=== PATIENT | male | born 1975 | race African-American/Black ===

== ENCOUNTER 2017-06-24 00:16 | Emergency (ER) | payer SELFPAY ==
[~2017-06-24] VITALS: Ht 167.6 cm; Wt 78.0 kg
[2017-06-24] MEDS ORDERED: ONDANSETRON HCL 4MG/2ML VIAL IV STA (01:30)
[2017-06-24] MEDS ORDERED: SODIUM CHLORIDE 0.9% 1,000 ML IV ONE (01:30)
[2017-06-24] MEDS ORDERED: ACETAMINOPHEN 325MG TABLET PO STA (01:30)
[2017-06-24 02:05] LABS: BASOPHILS % 0.4 % (0.0-2.0); EOSINOPHILS % 0.3 % (0.0-5.0); HEMATOCRIT. 40.7 % (42.0-52.0); LYMPHOCYTES % 24.9 % (20.0-50.0); MEAN CORPUSCULAR HEMOGLOBIN 33.3 pg (28.0-32.0); MEAN CORPUSCULAR VOLUME 96.5 fL (80.0-94.0); MEAN PLATELET VOLUME 7.9 fl (7.4-10.4); MONOCYTES % 14.4 % (2.0-8.0); PLATELET 162 x1000/uL (130-400); RED BLOOD CELL COUNT 4.22 mill/uL (4.7-6.1)
[2017-06-24 02:10] LABS: CHLORIDE 102 mEq/L (98-107)
[2017-06-24 04:55] VITALS: BP 135/88
[2017-06-24 05:45] LABS: CLARITY URINE CLEAR (CLEAR); COLOR URINE YELLOW (YELLOW); KETONES URINE NEGATIVE (NEGATIVE); LEUKOCYTE ESTERASE URINE TRACE (NEGATIVE); NITRITE URINE NEGATIVE (NEGATIVE); OCCULT BLOOD URINE NEGATIVE (NEGATIVE); PROTEIN URINE NEGATIVE (NEGATIVE); SPECIFIC GRAVITY URINE 1.016 (1.005-1.030)
== END 2017-06-24 05:29 | disposition home or self-care (01) ==
LOC: ER 02:27
DX: E86.0 Dehydration (principal); F17.200 Nicotine dependence, unspecified, uncomplicated; M54.30 Sciatica, unspecified side; M79.1 Myalgia
CPT/HCPCS: 36415; 71045; 80053; 81003; 83605; 84484; 85025; 87040; 93005; 96361; 96374; 99285; J2405; J7030; Z7610

== ENCOUNTER 2018-05-24 03:47 | Emergency (ER) | payer MEDICAID ==
[~2018-05-24] VITALS: Ht 167.6 cm; Wt 76.0 kg
[2018-05-24] MEDS ORDERED: HYDROCODONE/ACETAMINOPHEN 5/325MG TABLET PO ONE (06:30)
[2018-05-24] MEDS ORDERED: FLUORESCEIN SODIUM 1MG/STRIP OP ONE (06:30)
[2018-05-24] MEDS ORDERED: TETRACAINE 0.5% OPHTH DROPS 4ML LEFTEYE ONE (06:30)
[2018-05-24] MEDS ORDERED: TETANUS, DIPHTHERIA, PERTUSSIS VAC/PF 0.5ML (>7YR OLD) IM ONE (08:15)
[2018-05-24 08:27] VITALS: BP 128/77
== END 2018-05-24 08:28 | disposition home or self-care (01) ==
LOC: ER 03:47
DX: T15.02XA Foreign body in cornea, left eye, initial encounter (principal); F17.210 Nicotine dependence, cigarettes, uncomplicated; X58.XXXA Exposure to other specified factors, initial encounter; Y93.89 Activity, other specified; Y92.89 Other specified places as the place of occurrence of the external cause; Y99.8 Other external cause status
CPT/HCPCS: 65220; 65222; 90471; 90715; 99284

== ENCOUNTER 2018-05-24 21:10 | Emergency (ER) | payer MEDICAID ==
[~2018-05-24] VITALS: Ht 167.6 cm; Wt 77.0 kg
[2018-05-24] MEDS ORDERED: FLUORESCEIN SODIUM 1MG/STRIP LEFTEYE ONE (22:30)
[2018-05-24] MEDS ORDERED: TETRACAINE 0.5% OPHTH DROPS 4ML LEFTEYE ONE (22:30)
[2018-05-24] MEDS ORDERED: ERYTHROMYCIN BASE 0.5% OPHTH OINT 3.5GM LEFTEYE ONE (23:00)
[2018-05-24 23:51] VITALS: BP 115/74
== END 2018-05-24 23:51 | disposition home or self-care (01) ==
LOC: ER 21:10
DX: T15.92XA Foreign body on external eye, part unspecified, left eye, initial encounter (principal)
CPT/HCPCS: 65222; 99282; 99284

== ENCOUNTER 2018-10-26 08:50 | Emergency (ER) | payer MEDICAID, OTHER ==
[~2018-10-26] VITALS: Ht 167.6 cm; Wt 77.0 kg
[2018-10-26] MEDS ORDERED: BACITRACIN ZINC OINT UDPKT TOP ONE ×2 (11:45→12:30)
[2018-10-26] MEDS ORDERED: HYDROCODONE/ACETAMINOPHEN 5/325MG TABLET PO ONE (11:45)
[2018-10-26 12:13] VITALS: BP 124/80
[2018-10-26] MEDS: BACITRACIN 15GM TUBE TOP SCH ×2 (12:13→12:50)
[2018-10-26] MEDS ORDERED: LIDOCAINE HCL/PF 1% 10 MG/ML 5ML VIAL IJ ONE (12:30)
== END 2018-10-26 13:46 | disposition home or self-care (01) ==
LOC: ER 08:50
DX: S61.411A Laceration without foreign body of right hand, initial encounter (principal); S50.311A Abrasion of right elbow, initial encounter; S40.212A Abrasion of left shoulder, initial encounter; M25.552 Pain in left hip; F17.210 Nicotine dependence, cigarettes, uncomplicated; X93.XXXA Assault by handgun discharge, initial encounter; W01.0XXA Fall on same level from slipping, tripping and stumbling without subsequent striking against object, initial encounter; Y93.89 Activity, other specified; Y92.89 Other specified places as the place of occurrence of the external cause
CPT/HCPCS: 12002; 73130; 73502; 99284; J3490

== ENCOUNTER 2018-11-01 07:49 | Emergency (ER) | payer OTHER ==
[~2018-11-01] VITALS: Ht 172.7 cm; Wt 82.0 kg
[2018-11-01 07:54] VITALS: BP 137/72
== END 2018-11-01 09:21 | disposition home or self-care (01) ==
LOC: ER 07:49
DX: S61.411D Laceration without foreign body of right hand, subsequent encounter (principal); T81.30XD Disruption of wound, unspecified, subsequent encounter; X58.XXXD Exposure to other specified factors, subsequent encounter
CPT/HCPCS: 99283